=== PATIENT | female | born 1945 | race Caucasian/White ===

== ENCOUNTER 2019-10-28 09:50 | Emergency (ER) | payer MEDICARE, OTHER ==
[~2019-10-28] VITALS: Ht 180.3 cm; Wt 57.2 kg
--- NOTE | 2019-10-28 09:50 | NUR ---
BIB FRIEND, "I COLLAPSED FACE DOWN LAST SAT, DAUGHTER NOTICED MY NOSE IS BROKEN", DENIES PAIN AT THIS TIME. TO ER BED 10, HOOKED TO MONITOR, CHANGED TO HOSP GOWN, WARM BLANKET PROVIDED, PATIENT AAO x 4, BREATHING EVEN AND UNLABORED. DR KWAN AT BEDSIDE
--- NOTE | 2019-10-28 10:19 | NUR ---
TEARER AT BEDSIDE
--- NOTE | 2019-10-28 10:24 | NUR ---
PICKED UP BY RENAE RAY VIA [facility] FOR CT SCAN
[2019-10-28 10:53] LABS: BASOPHILS % (AUTO) 0.4 % (0.0-2.0); EOSINOPHILS % (AUTO) 1.6 % (0.0-6.0); HEMATOCRIT 40 % (33-45); HEMOGLOBIN 13.7 g/dL (11.5-14.8); LYMPHOCYTES # (AUTO) 0.7 /CMM (0.8-4.8); LYMPHOCYTES % (AUTO) 10.8 % (20.0-44.0); MEAN CORPUSCULAR HGB CONC 34 g/dl (31.0-36.0); MEAN CORPUSCULAR VOLUME 99 fL (82-100); MONOCYTES # (AUTO) 0.7 /CMM (0.1-1.30); MONOCYTES % (AUTO) 9.9 % (2.0-12.0); NEUTROPHILS # (AUTO) 5.1 /CMM (1.8-8.9); NEUTROPHILS % (AUTO) 77.3 % (43.0-81.0); PLATELET COUNT (AUTO) 224 /CMM (150-450); RED BLOOD CELL COUNT(AUTO) 4.06 MIL/uL (4.0-5.2); WHITE BLOOD COUNT (AUTO) 6.6 K/uL (4.3-11.0)
[2019-10-28 11:02] LABS: CALCIUM, SERUM 8.7 mg/dL (8.5-10.1); CARBON DIOXIDE 28 mmol/L (21-32); CHLORIDE 104 mmol/L (98-107); CREATININE 0.8 mg/dL (0.6-1.3); GLUCOSE 137 mg/dL (74-106); POTASSIUM 3.3 mmol/L (3.5-5.1); SODIUM SERUM 142 mmol/L (136-145); UREA NITROGEN, BLOOD 16 mg/dL (7-18)
--- NOTE | 2019-10-28 11:21 | NUR ---
CALLED [facility] [phone] THEY ARE WORKING ON IT.
--- NOTE | 2019-10-28 11:51 | NUR ---
Patient discharged to home in stable condition. Written and verbal after care instructions given. Patient verbalizes understanding of instruction.
[2019-10-28 11:52] VITALS: BP 132/74
== END 2019-10-28 11:52 | disposition home or self-care (01) ==
LOC: ER 09:54
DX: S02.2XXA Fracture of nasal bones, initial encounter for closed fracture (principal); S05.12XA Contusion of eyeball and orbital tissues, left eye, initial encounter; S05.11XA Contusion of eyeball and orbital tissues, right eye, initial encounter; R55 Syncope and collapse; R51 Headache; R42 Dizziness and giddiness; E78.5 Hyperlipidemia, unspecified; Z88.5 Allergy status to narcotic agent; W18.39XA Other fall on same level, initial encounter; Y93.89 Activity, other specified; Y92.89 Other specified places as the place of occurrence of the external cause; Y99.8 Other external cause status
CPT/HCPCS: 36415; 70450-TC; 71045-TC; 80048-TC; 84484-TC; 85025-TC; 85730-TC

== ENCOUNTER 2022-01-31 13:25 | Inpatient (IN) | payer BC, MEDICARE ==
[~2022-01-31] VITALS: Ht 180.3 cm; Wt 59.0 kg
--- NOTE | 2022-01-31 13:54 | NUR ---
TO ER BED 4 AWAITING MD BISHOP
--- NOTE | 2022-01-31 14:14 | NUR ---
BIB DAUGHTER, PT HAS DEMENTIA , C/O PAIN LEFT ANKLE FOOT SWOLLEN TENDER TO TOUCH
[2022-01-31 15:26] LABS: BASOPHILS # (AUTO) 0.1 K/uL (0.0-0.2); BASOPHILS % (AUTO) 0.9 % (0.0-2.0); EOSINOPHILS % (AUTO) 1.7 % (0.0-6.0); HEMATOCRIT 38 % (33-45); HEMOGLOBIN 12.5 g/dL (11.5-14.8); LYMPHOCYTES # (AUTO) 1.4 K/uL (0.8-4.8); LYMPHOCYTES % (AUTO) 23.3 % (20.0-44.0); MEAN CORPUSCULAR HGB CONC 33 g/dl (31.0-36.0); MEAN CORPUSCULAR VOLUME 98 fL (82-100); MONOCYTES # (AUTO) 0.6 K/uL (0.1-1.30); MONOCYTES % (AUTO) 9.5 % (2.0-12.0); NEUTROPHILS # (AUTO) 3.9 K/uL (1.8-8.9); NEUTROPHILS % (AUTO) 64.6 % (43.0-81.0); PLATELET COUNT (AUTO) 430 K/uL (150-450); RED BLOOD CELL COUNT(AUTO) 3.92 MIL/uL (4.0-5.2)
[2022-01-31 15:41] LABS: CALCIUM, SERUM 8.3 mg/dL (8.5-10.1); CREATININE 0.6 mg/dL (0.6-1.3); POTASSIUM 3.4 mmol/L (3.5-5.1)
[2022-01-31 15:54] LABS: ALBUMIN 2.7 g/dL (3.4-5.0); BILIRUBIN,DIRECT 0.1 mg/dL (0.0-0.2); BILIRUBIN,TOTAL 0.3 mg/dL (0.2-1.0); TOTAL PROTEIN, SERUM 6.9 g/dL (6.4-8.2)
--- NOTE | 2022-01-31 17:21 | NUR ---
SUBDURAL HEMATOMA IN BRAIN ONE YEAR AGO AT [facility] PLS NOTE
--- NOTE | 2022-01-31 17:35 | NUR ---
PT GETTING UP GOING TO BATHROOM MULTIPLE TIMES, EDUCATED TO REST STAY IN BED AND TO CALL FOR HELP WHEN NEEDING TO TRANSFER AND USE REST ROOM OR OTHER, UNCOOPERATIVE
--- NOTE | 2022-01-31 17:36 | NUR ---
PT GIVEN DINNER AND DAUGHTER HELPED TO REDIRECT PT TO EAT DINNER AND TO STAY IN BED
[2022-01-31] MEDS ORDERED: DONE10TA44 PO (17:43)
[2022-01-31] MEDS ORDERED: MEMA10TA PO (17:43)
[2022-01-31] MEDS ORDERED: MIRT-91 PO (17:43)
--- NOTE | 2022-01-31 17:46 | NUR ---
PT FILLED WITH ANXIETY AND ANXIOUS, PULLING ON IV SO D/C THE IV AT THIS TIME FOR SAFETY
--- NOTE | 2022-01-31 17:47 | NUR ---
MOVE SHEET SUBMITTED.
[2022-01-31] MEDS ORDERED: LOSA25TA27 PO (17:48)
--- NOTE | 2022-01-31 17:48 | NUR ---
MED RECON MEDICATION INFORMATION OBTAINED FROM THE DAUGHTER WHO IS A DOCTOR. PER DAUGHTER, PATIENT STOP TAKING HER HTN MEDICATION D/T HER BP FROM THE LAST HOSPITALISATION WAS LOW. PER DAUGHTER, PATIENT HASN'T SEEN HER PCP FOR A WHILE.
--- NOTE | 2022-01-31 18:09 | NUR ---
CT W/O CONTRAST, DBUGHER WENT HOME WILL SEE PT TOMORROW 4PM
--- NOTE | 2022-01-31 19:57 | NUR ---
COVID ANTIGEN SWAB COLLECTED AND SENT TO LAB
[2022-01-31] MEDS ORDERED: ENOXAPARIN SODIUM 60 MG/0.6 ML DISP.SYRIN SQ ONE ×2 (20:30→20:47)
[2022-01-31] MEDS ORDERED: TEMAZEPAM 15 MG CAPSULE PO PRN (21:00)
[2022-01-31] MEDS ORDERED: MAGNESIUM HYDROXIDE 30 ML UDC PO PRN (21:00)
[2022-01-31] MEDS ORDERED: HYDROCODONE/APAP 5/325MG TABLET PO PRN (21:00)
[2022-01-31] MEDS ORDERED: Z GUARD REMEDY 4 OZ OINT TP PRN (21:00)
[2022-01-31] MEDS ORDERED: ACETAMINOPHEN 325 MG TABLET PO PRN (21:00)
[2022-01-31] MEDS ORDERED: MAG HYDROX/AL HYDROX/SIMETH 30 ML UDC PO PRN (21:00)
[2022-01-31] MEDS ORDERED: ONDANSETRON HCL/PF 4 MG/2 ML VIAL IVP PRN (21:00)
--- NOTE | 2022-01-31 21:11 | NUR ---
BED 328-2
--- NOTE | 2022-01-31 21:18 | NUR ---
REPORT GIVEN TO ELEANOR JIANG
--- NOTE | 2022-01-31 21:20 | NUR ---
PATIENT BEING TRANSFERRED TO [facility]
[2022-01-31 22:20] VITALS: BP 150/98
--- NOTE | 2022-02-01 04:45 | NUR ---
CLOSING NOTES: ALERT ORIENTATED BUT A POOR MEMORY "WHERE IS THE BATHROOM " EVEN THOUGH SHE HAS BEEN USING IT THRU THE NIGHT, COOPERATIE FRIENDLY JUST NEEDS REMINDING. SHE IS CONTINENT NO BELONGS HER DTR TOOK ALL BELONGINGS HOME EVEN HE PURSE
--- NOTE | 2022-02-01 05:56 | NUR ---
REFUSED AM LAB WORK A THIS TIME. tOLD THE LAD FLOR TO COME BACK AT 10AM -11AM. UN ABLE TO CONVINCE HER TO HAVE THE BLOOD DRAWN NOW. SHE CAN BE EASILY ANGERED SO I DIDN'T PUSH THE BLOOD DRAW ON HER. MADE HER AWARE THE MD WOULD LIKE TO SEE THE LAB WORK EARLY IN THE AM AND BEFORE YOU EAT. SHE REFUSED TO HAVE THE BLOOD DRAWN THIS EARLY.
[2022-02-01] MEDS: PANTOPRAZOLE 40 MG TABLET.DR PO SCH (07:48)
[2022-02-01 08:00] VITALS: BP 148/98
--- NOTE | 2022-02-01 08:04 | NUR ---
RN OPENING NOTES RECEIVED PATIENT IN BED, ALERT AND ORIENTED X3. PATIENT IS ON ROOM AIR, NO SIGNS OF RESPIRATORY DISTRESS OR SOB NOTED. PATIENT HAS IV ACCESS ON THE LFA SL 20G, DRY AND INTACT. SAFETY MEASURES IN PLACE: BED LOCKED, SIDE RAILS UP X2, BED LOWEST POSITION, CALL LIGHT AND TABLE WITHIN REACH. WILL CONTINUE TO MONITOR.
[2022-02-01] MEDS: ENOXAPARIN SODIUM 60 MG/0.6 ML DISP.SYRIN SQ SCH ×2 (09:21→21:14)
[2022-02-01] MEDS: DONEPEZIL 5 MG TABLET PO SCH (11:22)
[2022-02-01 12:05] LABS: BASOPHILS # (AUTO) 0.1 K/uL (0.0-0.2); HEMATOCRIT 39 % (33-45); HEMOGLOBIN 12.7 g/dL (11.5-14.8); LYMPHOCYTES # (AUTO) 1.3 K/uL (0.8-4.8); LYMPHOCYTES % (AUTO) 18.7 % (20.0-44.0); MEAN CORPUSCULAR HGB CONC 33 g/dl (31.0-36.0); MEAN CORPUSCULAR VOLUME 96 fL (82-100); MONOCYTES # (AUTO) 0.7 K/uL (0.1-1.30); MONOCYTES % (AUTO) 10.4 % (2.0-12.0); NEUTROPHILS # (AUTO) 4.7 K/uL (1.8-8.9); NEUTROPHILS % (AUTO) 68.9 % (43.0-81.0); PLATELET COUNT (AUTO) 437 K/uL (150-450); RED BLOOD CELL COUNT(AUTO) 4.05 MIL/uL (4.0-5.2); WHITE BLOOD COUNT (AUTO) 6.8 K/uL (4.3-11.0)
[2022-02-01 13:04] LABS: CALCIUM, SERUM 8.5 mg/dL (8.5-10.1); CREATININE 0.6 mg/dL (0.6-1.3); MAGNESIUM 2.1 mg/dL (1.8-2.4); PHOSPHORUS 4.1 mg/dL (2.5-4.9)
[2022-02-01 13:15] LABS: THYROID STIMULATING HORMONE 2.839 uIU/mL (0.358-3.74)
[2022-02-01] MEDS ORDERED: POTASSIUM CHLORIDE 20 MEQ TAB.PRT.SR PO ONE ×2 (14:00→16:00)
[2022-02-01 16:00] VITALS: BP 161/60
--- NOTE | 2022-02-01 18:58 | NUR ---
RN CLOSING NOTES PATIENT IN BED, ALERT AND ORIENTED X3, WITH CONFUSION/DEMENTIA. PATIENT IS ON ROOM AIR, NO SIGNS OF RESPIRATORY DISTRESS OR SOB NOTED. PATIENT HAS IV ACCESS ON THE LFA SL 20G, DRY AND PATENT. PT HAS LEFT LEG EDEMA PITTING 2+. PT IS AMBULATORY AND CONTINENT. OCCASIONALLY WILL WALK OUT OF ROOM TO REQUEST FOOD. SAFETY MEASURES IN PLACE: BED LOCKED, SIDE RAILS UP X2, BED LOWEST POSITION, CALL LIGHT AND TABLE WITHIN REACH. WILL ENDORSE TO NIGHT NURSE.
[2022-02-01 20:00] VITALS: BP 155/85
--- NOTE | 2022-02-01 20:00 | NUR ---
RN OPENING NOTES PATIENT IN BED, ALERT AND ORIENTED X3, WITH CONFUSION/DEMENTIA. PATIENT IS ON ROOM AIR, NO SIGNS OF RESPIRATORY DISTRESS OR SOB NOTED. PATIENT HAS IV ACCESS ON THE LFA SL 20G, DRY AND PATENT. PT HAS LEFT LEG EDEMA PITTING 2+. PT IS AMBULATORY AND CONTINENT. KEEPS WALKING OUT IN TO THE HALLWAY CONFUSED ABOUT WHAT SHES SUPPOSED TO BE DOING EASILY REORIENTED BUT VERY FORGETFUL KEEPS COMING BACK OUT OF HER ROOM TO ASK THE SAME QUESTIONS SAFETY MEASURES IN PLACE: BED LOCKED, SIDE RAILS UP X2, BED LOWEST POSITION, CALL LIGHT AND TABLE WITHIN REACH
[2022-02-01] MEDS: MIRTAZAPINE 15 MG TABLET PO SCH (21:10)
--- NOTE | 2022-02-02 07:02 | NUR ---
RN CLOSING NOTES PATIENT IN BED, ALERT AND ORIENTED X3, WITH CONFUSION/DEMENTIA. PATIENT IS ON ROOM AIR, NO SIGNS OF RESPIRATORY DISTRESS OR SOB NOTED. PATIENT HAS IV ACCESS ON THE LFA SL 20G, DRY AND PATENT. PT HAS LEFT LEG EDEMA PITTING 2+. PT IS AMBULATORY AND CONTINENT. pt slept well throughout the night but came out of her room this morning she could not recall where she was or why she was here and wanted to speak to her daughter. EASILY REORIENTED BUT VERY FORGETFUL KEEPS COMING BACK OUT OF HER ROOM TO ASK THE SAME QUESTIONS SAFETY MEASURES IN PLACE: BED LOCKED, SIDE RAILS UP X2, BED LOWEST POSITION, CALL LIGHT AND TABLE WITHIN REACH
--- NOTE | 2022-02-02 07:30 | NUR ---
RN OPENING NOTES PATIENT IN BED, ALERT AND ORIENTED X3, WITH CONFUSION EPISODES. REORIENT THE PATIENT. PATIENT IS ON ROOM AIR, NO SIGNS OF RESPIRATORY DISTRESS OR SOB NOTED. PATIENT HAS IV ACCESS ON THE LFA SL 20G, DRY AND PATENT. PT HAS LEFT LEG EDEMA PITTING 2+. PT IS AMBULATORY AND CONTINENT. WITH EPISODES OF CONFUSION AND REORIENTED BUT VERY FORGETFUL KEEPS COMING BACK OUT OF HER ROOM TO ASK THE SAME QUESTIONS . ALL SAFETY MEASURES IN PLACE: BED LOCKED, SIDE RAILS UP X2, BED LOWEST POSITION, CALL LIGHT AND TABLE WITHIN REACH . WILL CONTINUE TO MONITOR.
[2022-02-02] MEDS: PANTOPRAZOLE 40 MG TABLET.DR PO SCH (07:34)
[2022-02-02 08:00] VITALS: BP 154/67
[2022-02-02] MEDS: MEMANTINE HCL 5 MG TABLET PO SCH (08:43)
[2022-02-02] MEDS: DONEPEZIL 5 MG TABLET PO SCH (08:43)
[2022-02-02] MEDS: APIXABAN 5 MG TABLET PO SCH ×2 (08:44→16:37)
--- NOTE | 2022-02-02 09:15 | NUR ---
RN NOTES FOR MRI CONSENT AND COMPLETE THE QUESTIONNAIRE CALLED THE DAUGHTER OF THE PATIENT WALTER JANE WITH PHONE NUMBER OF [phone] . THE DAUGHTER WALTER STATED HER MOM ROSETTE PASTRANA CAN FILL SIGN THE FROMS AND CONSENT FOR MRI.
[2022-02-02 16:00] VITALS: BP_SYST 136; BP_SYST 153; BP_DIAS 75; BP_DIAS 80
[2022-02-02] MEDS: ENSURE ENLIVE CHOC 237 ML CAN PO SCH ×2 (18:01→18:02)
[2022-02-02 18:46] VITALS: BP 136/75
--- NOTE | 2022-02-02 18:53 | NUR ---
RN CLOSING NOTES PATIENT IN BED, ALERT AND ORIENTED X3, WITH CONFUSION EPISODES. REORIENT THE PATIENT. PATIENT IS ON ROOM AIR, NO SIGNS OF RESPIRATORY DISTRESS OR SOB NOTED. PATIENT HAS IV ACCESS ON THE RFA SL 20G, DRY AND PATENT. PT HAS LEFT LEG EDEMA PITTING 2+. PT IS AMBULATORY AND CONTINENT. WITH EPISODES OF CONFUSION AND REORIENTED BUT VERY FORGETFUL KEEPS COMING BACK OUT OF HER ROOM TO ASK THE SAME QUESTIONS . ALL DUE MEDS GIVEN ORDERED. ALL SAFETY MEASURES IN PLACE: BED LOCKED, SIDE RAILS UP X2, BED LOWEST POSITION, CALL LIGHT AND TABLE WITHIN REACH . WILL ENDORSE FOR ROBERT.
--- NOTE | 2022-02-02 19:30 | NUR ---
RN OPENING NOTES PATIENT IN ROOM STANDING WITH NON SLIP SOCKS, A/OX3 WITH CONFUSION EPISODES.ON RA, TOLERATING WELL, NO S/S OF ACUITE DISTRESS, IV ACCESS ON THE LFA #20G, INTACT AND PATENT, S/L. PT IS AMBULATORY AND CONTINENT. PATIENT KEMARVES DAUGHTER IS COMING TO PICK HER UP TO GO HOME, JUST REOREINTATE THAT D/C WILL TAKE PLACE TOMORROW. ALL SAFETY MEASURES IN PLACE: BED LOCKED, SIDE RAILS UP X2, BED LOWEST POSITION, CALL LIGHT AND TABLE WITHIN REACH . WILL CONTINUE TO MONITOR THROUGHOUT SHIFT.
[2022-02-02 20:00] VITALS: BP 143/81
[2022-02-02] MEDS: MIRTAZAPINE 15 MG TABLET PO SCH (21:25)
--- NOTE | 2022-02-03 06:40 | NUR ---
RN CLOSING NOTES PATIENT ASLEEP IN BED A/OX3 WITH CONFUSION EPISODES.ON RA, TOLERATING WELL, NO S/S OF ACUTE DISTRESS, IV ACCESS ON THE LFA #20G, INTACT AND PATENT, S/L. FALL AND SAFETY MEASURES IN PLACE, BED ALARM ON, BED IN LOW AND LOCK POSITION, CALL LIGHT AND TABLE WITHIN EASY REACH, SIDE RAILS UP X2. WILL CONTINUE ENDORSE TO MORNING SHIFT FOR CONTINUOUS CARE
[2022-02-03] MEDS: PANTOPRAZOLE 40 MG TABLET.DR PO SCH (07:18)
--- NOTE | 2022-02-03 07:28 | NUR ---
MS RN OPENING NOTES RECEIVED PATIENT AWAKE IN BED, ALERT AND ORIENTED X3, WITH CONFUSION EPISODES. REORIENT THE PATIENT. PATIENT IS ON ROOM AIR, NO SIGNS OF RESPIRATORY DISTRESS OR SOB NOTED. PATIENT HAS IV ACCESS ON THE LFA SL 20G, DRY AND PATENT. PT HAS LEFT LEG EDEMA PITTING 2+. PT IS AMBULATORY AND CONTINENT. ALL SAFETY MEASURES IN PLACE: BED LOCKED, SIDE RAILS UP X2, BED LOWEST POSITION, CALL LIGHT AND TABLE WITHIN REACH . WILL CONTINUE TO MONITOR.
[2022-02-03] MEDS: ENSURE ENLIVE CHOC 237 ML CAN PO SCH ×2 (07:59→12:00)
[2022-02-03] MEDS: MEMANTINE HCL 5 MG TABLET PO SCH (08:09)
[2022-02-03] MEDS: DONEPEZIL 5 MG TABLET PO SCH (08:09)
[2022-02-03] MEDS: APIXABAN 5 MG TABLET PO SCH (08:10)
--- NOTE | 2022-02-03 12:10 | NUR ---
RN NOTES DISCHARGE PATIENT IN STABLE CONDITION WITH STABLE VITAL SIGNS. NO PAIN NOTED.NO SOB NOTED. NO DISTRESS NOTED. DAUGHTER WALTER CAME TO PICK THE PATIENT. ALL THE DISCHARGE INSTRUCTIONS , WHICH WERE FOLLOW UP WITH PCP IN A WEEK. FOLLOW UP WITH DR HORTON PULMONOGIST IN 6 WEEKS IN HIS OFFICE AND ELIQUIS 10 MG PO 2X DAILY FOR 5 DAYS AND DECREASE THE DOSE TO 5 MG PO 2X DAILY, GIVEN TO THE DAUGHTER WALTER . KIMBERLY VERBALIZED UNDERSTANDING. ALL THE BELONGINGS WERE TAKEN HOME WITH THE DAUGHTER, ONLY THE YELLOW BRACELET WAS ON THE PATIENT'S RIGHT HAND. THE DAUGHTER BROUGHT CLOTHES FOR THE PATIENT. AND THE DAUGHTER WALTER SIGNED THE BELONGINGS AND INSTRUCTIONS FORM. ALL NEEDS ATTENDED. REMOVED IV , COVERED WITH DRY DRESSING. NO BLEEDING NOTED. ID BAND REMOVED. WALKED WITH THE PATIENT TO THE [facility]. PATIENT LEFT HOSPITAL AT 1210 IN STABLE CONDITION WITH STABLE VITAL SIGN. MD AND CHARGE NURSE AWARE OF THE DISCHARGE.
[2022-02-03] MEDS ORDERED: GADOTERATE MEGLUMINE 10 MMOL/20 ML VIAL IV ONE (12:37)
[2022-02-04 17:06] LABS: *CARD ANTI-CARDIOLIPIN AB IgG <9 GPL U/mL (0-14)
[2022-02-05 00:06] LABS: *ANTITHROMBIN III AG 92 % (72-124); *DILUTE PROTHROMBIN TIME (dPT) 32.8 sec (0.0-47.6); *THROMBIN TIME 15.6 sec (0.0-23.0); *dPT CONFIRM RATIO 0.83 Ratio (0.00-1.34); *dRVVT 38.9 sec (0.0-47.0)
[2022-02-05 10:07] LABS: *CARD ANTI-CARDIOLIPIN AB IgM 9 MPL U/mL (0-12)
[2022-02-09] MEDS ORDERED: APIXABAN 5 MG TABLET PO SCH (09:00)
== END 2022-02-03 12:05 | disposition home health service (06) | DRG 299 ==
LOC: ER 13:25 → MED 21:13
PROVIDERS: ADMIT Nurse Practitioner Acute Care; ATTEND Nurse Practitioner Acute Care
DX: I82.412 Acute embolism and thrombosis of left femoral vein (principal); I62.03 Nontraumatic chronic subdural hemorrhage; F02.83 Dementia in other diseases classified elsewhere, unspecified severity, with mood disturbance; R64 Cachexia; E44.0 Moderate protein-calorie malnutrition; Z68.1 Body mass index [BMI] 19.9 or less, adult; J90 Pleural effusion, not elsewhere classified; F33.9 Major depressive disorder, recurrent, unspecified; G30.9 Alzheimer's disease, unspecified; E78.5 Hyperlipidemia, unspecified; E87.6 Hypokalemia; E88.09 Other disorders of plasma-protein metabolism, not elsewhere classified; F12.90 Cannabis use, unspecified, uncomplicated; I10 Essential (primary) hypertension; Z87.891 Personal history of nicotine dependence; F09 Unspecified mental disorder due to known physiological condition; Z20.822 Contact with and (suspected) exposure to COVID-19; I82.432 Acute embolism and thrombosis of left popliteal vein; G96.08 Other cranial cerebrospinal fluid leak
CPT/HCPCS: 36415; 70450-TC; 70553-TC; 71045-TC; 80048-TC; 80076-TC; 83735-TC; 83880; 84100-TC; 84443-TC; 85025-TC; 85300; 85301; 85303; 85613; 85670; 85705; 85730-TC; 85732; 86147; 93971-TC; 97112-TC; 97116-TC; 97530-TC; A9575; C9803; G0378; J1650

== ENCOUNTER 2023-06-12 11:18 | Emergency (ER) | payer BC, MEDICARE ==
[~2023-06-12] VITALS: Ht 175.3 cm; Wt 47.6 kg
[~2023-06-12 11:18] MED LIST: DONE10TA44 PO; MEMA10TA PO; MIRT-91 PO
[2023-06-12 12:43] LABS: CALCIUM, SERUM 9.2 mg/dL (8.5-10.1); CREATININE 0.8 mg/dL (0.6-1.3); POTASSIUM 4.8 mmol/L (3.5-5.1)
[2023-06-12 12:44] LABS: ALBUMIN 3.4 g/dL (3.4-5.0); BILIRUBIN,TOTAL 1.3 mg/dL (0.2-1.0); TOTAL PROTEIN, SERUM 7.5 g/dL (6.4-8.2)
[2023-06-12 14:23] LABS: BASOPHILS % (AUTO) 0.2 % (0.0-2.0); EOSINOPHILS % (AUTO) 0.1 % (0.0-6.0); HEMATOCRIT 47 % (33-45); HEMOGLOBIN 15.2 g/dL (11.5-14.8); LYMPHOCYTES # (AUTO) 1.8 K/uL (0.8-4.8); LYMPHOCYTES % (AUTO) 12.2 % (20.0-44.0); MEAN CORPUSCULAR HEMOGLOBIN 34 PG (26.0-33.0); MEAN CORPUSCULAR HGB CONC 33 g/dl (31.0-36.0); MEAN CORPUSCULAR VOLUME 103 fL (82-100); MONOCYTES # (AUTO) 1.5 K/uL (0.1-1.30); MONOCYTES % (AUTO) 10.1 % (2.0-12.0); NEUTROPHILS # (AUTO) 11.3 K/uL (1.8-8.9); NEUTROPHILS % (AUTO) 77.4 % (43.0-81.0); PLATELET COUNT (AUTO) 210 K/uL (150-450); RED BLOOD CELL COUNT(AUTO) 4.53 MIL/uL (4.0-5.2); WHITE BLOOD COUNT (AUTO) 14.6 K/uL (4.3-11.0)
[2023-06-12 14:43] LABS: APPEARANCE,URINE SLIGHTLY CLOUDY (CLEAR); BILIRUBIN,URINE 1+ (NEGATIVE); BLOOD, URINE 2+ Ery/uL (NEGATIVE); COLOR,URINE YELLOW (YELLOW); KETONES,URINE 2+ mg/dL (NEGATIVE); LEUKOCYTE ESTERASE ,URINE NEGATIVE (NEGATIVE); NITRITE, URINE POSITIVE (NEGATIVE); PROTEIN,URINE 1+ mg/dl (NEGATIVE); UGLUCOSE NEGATIVE (NEGATIVE)
[2023-06-12] MEDS: IV NS 0.9% 500 ML IV ONE (16:01)
[2023-06-12 16:20] LABS: ADD URINE CULTURE YES; BACTERIA,URINE 4+ /HPF (None Seen); RBC,URINE 21-50 /HPF (0-2)
[2023-06-12 16:23] VITALS: BP 142/99; TEMP 98.2; O2SAT 98
[2023-06-12 18:17] LABS: BAND % (MANUAL) 4 % (0.0-5.0); LYMPHOCYTES % (MANUAL) 9 % (16-48); MONOCYTES % (MANUAL) 5 % (0-11.0); NEUTROPHILS % (MANUAL) 82 (42-76); PLATELET ESTIMATE ADEQUATE
[2023-06-12 18:18] LABS: ANISOCYTOSIS 1+
== END 2023-06-12 16:23 | disposition home or self-care (01) ==
LOC: ER 11:21
DX: R41.0 Disorientation, unspecified (principal); R51.9 Headache, unspecified; M54.2 Cervicalgia; F03.90 Unspecified dementia, unspecified severity, without behavioral disturbance, psychotic disturbance, mood disturbance, and anxiety; I10 Essential (primary) hypertension; W18.30XA Fall on same level, unspecified, initial encounter; Y93.89 Activity, other specified; Y92.89 Other specified places as the place of occurrence of the external cause; Y99.8 Other external cause status
CPT/HCPCS: 36415; 70450-TC; 72125-TC; 80053-TC; 81001; 83690-TC; 85025-TC; 87086-TC

== ENCOUNTER 2025-02-21 01:54 | Emergency (ER) | payer MEDICARE ==
[~2025-02-21] VITALS: Ht 167.6 cm; Wt 54.4 kg
[2025-02-21 05:21] LABS: PLATELET COUNT (AUTO) 262 K/uL (150-450); RED BLOOD CELL COUNT(AUTO) 4.12 MIL/uL (4.0-5.2); RED CELL DISTRIBUTION WIDTH 13.6 % (11.5-15.0); WHITE BLOOD COUNT (AUTO) 8.9 K/uL (4.3-11.0)
[2025-02-21 05:28] LABS: CALCIUM, SERUM 8.6 mg/dL (8.5-10.1); CREATININE 0.7 mg/dL (0.6-1.3); SODIUM SERUM 141 mmol/L (136-145); UREA NITROGEN, BLOOD 15 mg/dL (7-18)
[2025-02-21 05:38] LABS: ASPARTATE AMINOTRANSFERASE 17 U/L (15-37); TOTAL PROTEIN, SERUM 7.3 g/dL (6.4-8.2)
[2025-02-21 09:11] VITALS: BP 121/76; TEMP 97.8; O2SAT 99
== END 2025-02-21 09:12 ==
LOC: ER 02:17
DX: R19.7 Diarrhea, unspecified (principal); F03.90 Unspecified dementia, unspecified severity, without behavioral disturbance, psychotic disturbance, mood disturbance, and anxiety; I11.9 Hypertensive heart disease without heart failure; Z79.899 Other long term (current) drug therapy
CPT/HCPCS: 36415; 80048-TC; 80076-TC; 83690-TC; 85025-TC